=== PATIENT | male | born 1990 ===

== ENCOUNTER 2019-01-01 09:26 | Emergency (ER) | payer SELFPAY ==
--- NOTE | 2019-01-01 10:12 | EDPHYS ---
Physician Documentation [facility] Name: Bruce Germain Age: 28 yrs Sex: Male : 1990 Arrival Date: 01/01/2019 Time: 09:30 Bed 13 Private MD: Unknown, Unknown ED Physician Joni Hodge HPI: 01/01 10:09 This 28 yrs old Male presents to ER via Ambulatory with complaints of Rash, Insect Bite.nh 10:09 The patient's rash thought to be caused by an unknown cause. The rash is located on the nh back and left mid back and left low back. The rash can be described as erythematous, vesicular. Onset: The symptoms/episode began/occurred 4 day(s) ago. Associated signs and symptoms: Pertinent positives: burning sensation, itching. Severity of symptoms: At their worst the symptoms were moderate just prior to arrival, in the emergency department the symptoms are unchanged. The patient has not experienced similar symptoms in the past. The patient has not recently seen a physician. Historical: - Allergies: :33 No Known Allergies; rb1 - Home Meds: :33 None [Active]; rb1 - PMHx: 09:33 Diabetes - NIDDM; rb1 - PSHx: 09:33 abdomen; rb1 - Immunization history:: Adult Immunizations up to date. - Ebola Screening: : Patient negative for fever greater than or equal to 101.5 degrees Fahrenheit, and additional compatible Ebola Virus Disease symptoms. - Social history:: Smoking status: Patient uses tobacco products, denies chronic smoking, but will smoke occasionally. ROS: 10:09 Constitutional: Negative for fever, chills, and weight loss, Eyes: Negative for injury, nh pain, redness, and discharge, ENT: Negative for injury, pain, and discharge, Neck: Negative for injury, pain, and swelling, Cardiovascular: Negative for chest pain, palpitations, and edema, Respiratory: Negative for shortness of breath, cough, wheezing, and pleuritic chest pain, Abdomen/GI: Negative for abdominal pain, nausea, vomiting, diarrhea, and constipation, Back: Negative for injury and pain, : Negative for injury, bleeding, discharge, and swelling, MS/Extremity: Negative for injury and deformity, Neuro: Negative for headache, weakness, numbness, tingling, and seizure, Psych: Negative for depression, anxiety, suicide ideation, homicidal ideation, and hallucinations, Allergy/Immunology: Negative for hives, rash, and allergies, Endocrine: Negative for neck swelling, polydipsia, polyuria, polyphagia, and marked weight changes, Hematologic/Lymphatic: Negative for swollen nodes, abnormal bleeding, and unusual bruising. 10:09 Skin: Positive for rash. Exam: 10:09 Constitutional: This is a well developed, well nourished patient who is awake, alert, nh and in no acute distress. Head/Face: Normocephalic, atraumatic. Eyes: Pupils equal round and reactive to light, extra-ocular motions intact. Lids and lashes normal. Conjunctiva and sclera are non-icteric and not injected. Cornea within normal limits. Periorbital areas with no swelling, redness, or edema. ENT: Nares patent. No nasal discharge, no septal abnormalities noted. Tympanic membranes are normal and external auditory canals are clear. Oropharynx with no redness, swelling, or masses, exudates, or evidence of obstruction, uvula midline. Mucous membranes moist. Neck: Trachea midline, no thyromegaly or masses palpated, and no cervical lymphadenopathy. Supple, full range of motion without nuchal rigidity, or vertebral point tenderness. No Meningismus. Chest/axilla: Normal chest wall appearance and motion. Nontender with no deformity. No lesions are appreciated. Cardiovascular: Regular rate and rhythm with a normal S1 and S2. No gallops, murmurs, or rubs. Normal PMI, no JVD. No pulse deficits. Respiratory: Lungs have equal breath sounds bilaterally, clear to auscultation and percussion. No rales, rhonchi or wheezes noted. No increased work of breathing, no retractions or nasal flaring. Abdomen/GI: Soft, non-tender, with normal bowel sounds. No distension or tympany. No guarding or rebound. No evidence of tenderness throughout. Back: No spinal tenderness. No costovertebral tenderness. Full range of motion. MS/ Extremity: Pulses equal, no cyanosis. Neurovascular intact. Full, normal range of motion. Neuro: Awake and alert, GCS 15, oriented to person, place, time, and situation. Cranial nerves II-XII grossly intact. Motor strength 5/5 in all extremities. Sensory grossly intact. Cerebellar exam normal. Normal gait. 10:09 Skin: consistent with zoster, on the left mid back and left low back. Vital Signs: 09:33 BP 121 / 98; Pulse 104; Resp 16; Temp 98.0(O); Pulse Ox 97% on R/A; Weight 83.91 kg rb1 (R); Height 5 ft. 11 in. (180.34 cm) (R); Pain 0/10; 10:27 BP 122 / 93; Pulse 91; Resp 17; Temp 98.3(O); Pulse Ox 99% on R/A; Pain 0/10; rb1 09:33 Body Mass Index 25.80 (83.91 kg, 180.34 cm) rb1 MDM: 09:43 Patient medically screened. nh 10:09 Data reviewed: vital signs, nurses notes, I have discussed the patient's nd presentation/case with the attending Emergency Department Physician; and as a result, I will discharge patient. Counseling: I had a detailed discussion with the patient and/or guardian regarding: the historical points, exam findings, and any diagnostic results supporting the discharge/admit diagnosis, the need for outpatient follow up, to return to the emergency department if symptoms worsen or persist or if there are any questions or concerns that arise at home. Administered Medications: No medications were administered Disposition: 01/01/19 10:12 Discharged to Home. Impression: Zoster [herpes zoster], Psoriasis. - Condition is Stable. - Discharge Instructions: Psoriasis, Shingles. - Prescriptions for Betamethasone Valerate 0.1 % Topical Cream - Apply to affected area 1 application by TOPICAL route once daily; 1 tube. Acyclovir 800 mg Oral Tablet - take 1 tablet by ORAL route 5 times per day for 10 days; 50 tablet. - Medication Reconciliation Form, Thank You Letter, Antibiotic Education, Prescription Opioid Use form. - Family Work Release (01/01/19 14:42). ss - Work release form (01/01/19 14:39). eb - Follow up: Private Physician; When: 5 - 6 days; Reason: Recheck today's complaints. - Problem is new. - Symptoms are unchanged. Addendum: 01/03/2019 07:01 Co-signature as Attending Physician, Joni Hodge MD I agree with the assessment and [facility] plan of care. Signatures: Joni Hodge MD MD kdr Cronk, Niki, CENTER MACHINE OPERATOR CENTER MACHINE OPERATOR nd Domenica Hector, RN RN rb1 Lucy Dasilva RN ss Blanca Farmer Corrections: (The following items were deleted from the chart) 01/01 10:29 10:12 01/01/2019 10:12 Discharged to Home. Impression: Zoster [herpes zoster]; rb1 Psoriasis. Condition is Stable. Forms are Medication Reconciliation Form, Thank You Letter, Antibiotic Education, Prescription Opioid Use. Follow up: Private Physician; When: 5 - 6 days; Reason: Recheck today's complaints. Problem is new. Symptoms are unchanged. nd
--- NOTE | 2019-01-01 10:12 | ER ---
Nurse's Notes [facility] Name: Bruce Germain Age: 28 yrs Sex: Male : 1990 Arrival Date: 01/01/2019 Time: :30 Bed 13 Private MD: Unknown, Unknown Diagnosis: Zoster [herpes zoster];Psoriasis Presentation: 01/01 09:33 Presenting complaint: Patient states: Has a rash on the left side of his back since rb1 Thursday. :33 Transition of care: patient was not received from another setting of care. Onset of rb1 symptoms was December 27, 2018. Risk Assessment: Do you want to hurt yourself or someone else? Patient reports no desire to harm self or others. Initial Sepsis Screen: Does the patient meet any 2 criteria? No. Patient's initial sepsis screen is negative. Does the patient have a suspected source of infection? No. Patient's initial sepsis screen is negative. Care prior to arrival: None. :33 Method Of Arrival: Ambulatory [facility] :33 Acuity: VICKEY 3 rb1 Triage Assessment: :33 General: Appears in no apparent distress. comfortable, Behavior is calm, cooperative. rb1 Pain: Denies pain. Neuro: Level of Consciousness is awake, alert, obeys commands, Oriented to person, place, time, situation. Cardiovascular: Capillary refill < 3 seconds is brisk in bilateral fingers. Respiratory: Airway is patent Respiratory effort is even, unlabored, Respiratory pattern is regular, symmetrical. GI: No signs and/or symptoms were reported involving the gastrointestinal system. : No signs and/or symptoms were reported regarding the genitourinary system. Derm: Rash noted that is itchy, red, on left low back and left mid back. :33 Bite description: bite by N/A. rb1 Historical: - Allergies: : No Known Allergies; rb1 - Home Meds: : None [Active]; rb1 - PMHx: Diabetes - NIDDM; rb1 - PSHx: : abdomen; rb1 - Immunization history:: Adult Immunizations up to date. - Ebola Screening: : Patient negative for fever greater than or equal to 101.5 degrees Fahrenheit, and additional compatible Ebola Virus Disease symptoms. - Social history:: Smoking status: Patient uses tobacco products, denies chronic smoking, but will smoke occasionally. Screenin:33 Abuse screen: Denies threats or abuse. Nutritional screening: No deficits noted. rb1 Tuberculosis screening: No symptoms or risk factors identified. Fall Risk None identified. Assessment: 09:33 General: See triage assessment. rb1 09:33 Derm: Skin scabs noted to left back. rb1 10:27 Reassessment: Patient appears in no apparent distress at this time. No changes from [facility] previously documented assessment. Vital Signs: 09:33 BP 121 / 98; Pulse 104; Resp 16; Temp 98.0(O); Pulse Ox 97% on R/A; Weight 83.91 kg rb1 (R); Height 5 ft. 11 in. (180.34 cm) (R); Pain 0/10; 10:27 BP 122 / 93; Pulse 91; Resp 17; Temp 98.3(O); Pulse Ox 99% on R/A; Pain 0/10; rb1 09:33 Body Mass Index 25.80 (83.91 kg, 180.34 cm) [facility] ED Course: 09:30 Patient arrived in ED. ag5 09:30 Unknown, Unknown is Private Physician. ag5 09:33 Domenica Hector, RN is Primary Nurse. rb1 09:33 Arm band placed on right wrist. rb1 09:33 Patient has correct armband on for positive identification. Bed in low position. Call rb1 light in reach. Side rails up X 1. Pulse ox on. NIBP on. 09:42 Triage completed. rb1 09:43 Corrina Reeder FNP is [facility]. nh 09:43 Joni Hodge MD is Attending Physician. nh 10:27 No provider procedures requiring assistance completed. Patient did not have IV access rb1 during this emergency room visit. Administered Medications: No medications were administered Outcome: 10:12 Discharge ordered by . nh 10:27 Discharged to home ambulatory. rb1 10:27 Condition: stable 10:27 Discharge instructions given to patient, Instructed on discharge instructions, follow up and referral plans. medication usage, Demonstrated understanding of instructions, follow-up care, medications, Prescriptions given X 2. 10:29 Patient left the ED. [facility] Signatures: Corrina Reeder FNP GOVERNMENT PROGRAM MANAGER [place] Domenica Hector, RN RN [facility] Kurt Samson ag5
== END 2019-01-01 10:29 | disposition home or self-care (01) ==
LOC: ER 09:26
DX: B02.9 Zoster without complications (principal); L40.9 Psoriasis, unspecified; E11.9 Type 2 diabetes mellitus without complications; Z72.0 Tobacco use
CPT/HCPCS: 99283